=== PATIENT | female | born 1995 | race Two or more races ===

== ENCOUNTER 2018-10-25 17:25 | Emergency (ER) | payer OTHER ==
[~2018-10-25] VITALS: Ht 157.5 cm; Wt 88.9 kg
== END 2018-10-25 22:16 | disposition home or self-care (01) ==
LOC: ER 17:25
DX: S46.811A Strain of other muscles, fascia and tendons at shoulder and upper arm level, right arm, initial encounter (principal); X50.3XXA Overexertion from repetitive movements, initial encounter; Y93.89 Activity, other specified; Y92.89 Other specified places as the place of occurrence of the external cause; Y99.8 Other external cause status

== ENCOUNTER 2021-02-26 09:02 | Emergency (ER) | payer OTHER ==
[~2021-02-26] VITALS: Ht 157.5 cm; Wt 88.5 kg
[2021-02-26] MEDS ORDERED: ZITHROMAX500 MG PO (15:36)
[2021-02-26] MEDS ORDERED: INTESTINEX680 M1 PO (15:41)
== END 2021-02-26 18:17 | disposition home or self-care (01) ==
LOC: ER 09:02
DX: R10.13 Epigastric pain (principal); R11.11 Vomiting without nausea; R53.81 Other malaise